=== PATIENT | male | born 1990 | race African-American/Black ===

== ENCOUNTER 2020-07-31 04:19 | Emergency (ER) | payer OTHER, SELFPAY ==
[2020-07-31 04:28] VITALS: BP 136/85; PULSE 115; RESP 16; TEMP 36.4; O2SAT 97; BMI 29.9
--- NOTE | 2020-07-31 04:37 | ECG_ITS ---
Test Reason : PALPATATIONS Blood Pressure : / mmHG Vent. Rate : 126 BPM Atrial Rate : 126 BPM P-R Int : 160 ms QRS Dur : 090 ms QT Int : 306 ms P-R-T Axes : 044 027 031 degrees QTc Int : 443 ms Sinus tachycardia Otherwise normal ECG No previous ECGs available Referred By: Tia Park Electronically Signed By:WON LOZANO
[2020-07-31 05:18] LABS: MANUAL DIFF FLAG NO
[2020-07-31 05:20] LABS: Basophils Absolute Auto 0.1 X10*3/uL (0.0-0.2); Basophils Percent Auto 0.3 % (0-2); Eosinophils Absolute Auto 0.2 X10*3/uL (0.0-0.4); Eosinophils Percent Auto 1.3 % (0-4); Hematocrit 42.1 % (42-52); Hemoglobin 13.7 g/dl (14.0-18.0); Imm Gran Pct Auto 0.6 % (0.0-0.4); Lymphocytes Absolute Auto 3.9 X10*3/uL (1.2-4.9); Lymphocytes Percent Auto 21.9 % (20-40); Mean Corpuscular HGB Conc 32.5 g/dl (31.0-36.0); Mean Corpuscular Hemoglobin 30.2 pg (27.0-33.0); Mean Corpuscular Volume 92.7 fL (80-98); Mean Platelet Volume 9.7 fL (9.4-12.4); Monocytes Absolute Auto 1.2 X10*3/uL (0.1-1.2); Monocytes Percent Auto 6.9 % (2-11); Neutrophils Absolute Auto 12.4 X10*3/uL (2.0-8.3); Platelet Count 457 X10*3/uL (160-400); Red Blood Count 4.54 X10*6/uL (4.60-5.80); Red Cell Distribution Width 11.9 % (11.0-16.0); White Blood Count 17.9 X10*3/uL (4.8-10.8)
[2020-07-31] MEDS: 0.9 % Sodium Chloride 1,000 ML 999 ML IV ×2 (05:21→06:54)
[2020-07-31] MEDS: LORazepam 2 MG/ML VIAL 1 MG IVPUSH (05:22)
[2020-07-31 05:28] LABS: D Dimer < 200 NG/ML
--- NOTE | 2020-07-31 05:36 | ED.MEDCLEAR ---
HPI - Medical Clearance General Chief complaint: Medical Clearance Stated complaint: FAST HEART RATE S/P MARIJUANA USE Time Seen by Provider: 07/31/20 04:37 History of Present Illness HPI Narrative: Patient is 30 years old history of marijuana use. Patient used marijuana 01:00 o'clock. Noted have palpitation at approximately 03:00. The heartbeat was fast. Patient denies any diaphoresis. Was fairly sudden in onset. Patient denies any chest pain. No history of blood clots in the past. Positive weakness. Patient is from home. No leg swelling. No history of travel. No history of clotting disorder. Patient has palpitation seems to be fast and regular. Related Information Allergies Allergy/AdvReac Type Severity Reaction Status Date / Time No Known Allergies Allergy Verified 07/31/20 04:34 Review of Systems Review of Systems: Constitutional: No Weight loss, No Fever, No Chills, No Night Sweats, No Fatigue, No Malaise ENT/Mouth: No Hearing loss, No Ear Pain, No Nasal Congestion, No Sinus Pain, No Hoarseness, No sore throat, No Rhinorrhea, No Swallowing Difficulty Eyes: No Eye Pain, No Swelling, No Redness, No Foreign Body, No Discharge, No Vision Changes Cardiovascular: No Chest Pain, No SOB, No Dyspnea on Exertion, No Orthopnea, No Edema, positive Palpitations Respiratory: No Cough, No Sputum, No Wheezing, No Smoke Exposure, No Dyspnea Gastrointestinal: No Nausea, No Vomiting, No Diarrhea, No Constipation, No abdominal Pain, No Hematochezia, No Melena Genitourinary: no irregular bleeding, No Dysuria, No Urinary Frequency, No Hematuria, No Urinary Incontinence, No Urgency, No Flank Pain, No Urinary Flow Changes, No Hesitancy Musculoskeletal: No joint pain, No Myalgias, No Joint Swelling Skin: No Skin Lesions, No rash Neuro: No Weakness, No Numbness, No Paresthesias, No Loss of Consciousness, No Dizziness, No Headache Psych: No Anxiety/Panic, No Depression, No SI/HI/AH/VH, No Social Issues, Heme/Lymph: No Bruising, No Bleeding,No Lymphadenopathy Endocrine: No Polyuria, No Polydipsia, No Temperature Intolerance PMFSH Past Medical History Attestation statement: The following information was validated with the patient. Social History Social History Alcohol intake: never Patient Tobacco Use Status: Current everyday Tobacco user Smoked in Last 30 Days: Yes Use of substances other than those prescribed or required for medical reasons: No Substance Use Type: Marijuana Advance Directives: No Advance Directives Information Provided: No Physical Exam Vital Signs: Vital Signs: Last Vital Signs Temp 97.5 F 07/31/20 04:28 Pulse 98 07/31/20 06:00 Resp 16 07/31/20 06:00 BP 119/64 07/31/20 06:00 Pulse Ox 97 07/31/20 06:00 Body Mass Index 29.9 Patient has fair appearing no acute distress Appearance: Alert. Oriented X3. No acute distress. Eyes: Pupils equal, round and reactive to light. ENT: Pharynx normal. Neck: Normal inspection. Neck supple. No lymph nodes noted. No crepitus CVS: Tachycardic but regular Respiratory: No respiratory distress. Breath sounds normal. No Wheezing. No rales Abdomen: Soft and nontender. No rigidity. No distention. good BS x4 Skin: Skin warm and dry. Normal skin color. Normal skin turgor. Extremities: No lower extremity edema. Neurovascular intact to all extremities. No Lacerations. No Rash Neuro: Oriented X 3. No motor deficit. No sensory deficit. Moving all extermities. No slurred speech MDM - Medical Clearance MDM Narrative Medical decision making narrative: Patient's presented today with having tachycardia EKG appear to be a sinus tachycardia heart rate was approximately 130. Patient's TSH is normal. No evidence for hyperthyroid. Patient's D-dimer is less than 200. No evidence for pulmonary emboli. Given IV fluid given time here in the emergency department. Heart rate is down to 96. Patient's electrolytes are unremarkable no evidence for renal insufficiency. Patient's white count is elevated. Patient has no source of infection. Lactate is 2.0. Likely secondary from dehydration. Given 2 L of IV fluids. Patient is to be discharged home. Currently sleeping heart rate is down to 96. In no distress. Medical Records Attestation: I reviewed the patient's medical records. Lab Data Attestation: I reviewed the patient's lab results. Result diagrams: 07/31/20 05:13 07/31/20 05:13 Labs: Lab Results 07/31/20 07/31/20 07/31/20 Range/Units 05:13 05:13 05:13 WBC 17.9 H (4.8-10.8) X10*3/uL RBC 4.54 L (4.60-5.80) X10*6/uL Hgb 13.7 L (14.0-18.0) g/dl Hct 42.1 (42-52) % MCV 92.7 (80-98) fL MCH 30.2 (27.0-33.0) pg MCHC 32.5 (31.0-36.0) g/dl RDW 11.9 (11.0-16.0) % Plt Count 457 H (160-400) X10*3/uL MPV 9.7 (9.4-12.4) fL Immature Gran % (Auto) 0.6 H (0.0-0.4) % Neut % (Auto) 69.0 (45-73) % Lymph % (Auto) 21.9 (20-40) % Assumption % (Auto) 6.9 (2-11) % Eos % (Auto) 1.3 (0-4) % Baso % (Auto) 0.3 (0-2) % Lymph # (Auto) 3.9 (1.2-4.9) X10*3/uL Assumption # (Auto) 1.2 (0.1-1.2) X10*3/uL Eos # (Auto) 0.2 (0.0-0.4) X10*3/uL Baso # (Auto) 0.1 (0.0-0.2) X10*3/uL Abs Immat Gran (auto) 0.10 H (0.00-0.03) X10*3/uL Absolute Neuts (auto) 12.4 H (2.0-8.3) X10*3/uL Absolute Nucleated RBC 0.000 (0.0-0.012) X10*3/uL Nucleated RBC % (auto) 0.0 (0.0-0.2) /100WBC D-Dimer < 200 NG/ML Sodium 140 (135-145) mmol/L Potassium 3.6 (3.3-5.1) mmol/L Chloride 104 (96-108) mmol/L Carbon Dioxide 26 (22-29) mmol/L Anion Gap 14 (12-20) BUN 13 (9-16) mg/dL Creatinine 1.07 (0.5-1.4) mg/dL Estim Creat Clear Calc 109.7 Estimated GFR > 60 Random Glucose 116 H (60-115) mg/dL Calcium 9.6 (8.4-10.2) mg/dL Total Bilirubin 0.3 (0.0-1.0) mg/dL Direct Bilirubin < 0.2 (0.0-0.5) mg/dL AST 24 (5-37) U/L ALT 29 (0-40) U/L Alkaline Phosphatase 119 H (39-117) U/L Total Protein 8.7 H (6.5-8.0) g/dL Albumin 4.8 (3.5-5.0) g/dL Lipase 24 (8-78) U/L TSH 1.03 (0.32-4.0) uIU/mL ECG Data Interpretation: Sinus heart rate is 130. AL QRS QT within normal limits as nonspecific T-wave flattening Critical Care Time Critical Care Time Total Critical Care Time: 40 Attestation: I have personally provided 40 minutes of critical care time exclusive of time spent on separately billable procedures. Time includes review of lab data, radiology results, discussion with consultants, and monitoring for potential decompensation. Interventions were performed as documented above Discharge Plan Discharge Clinical Impression: Dehydration, Sinus tachycardia Patient Disposition: Home, Self-Care Instructions: Heart Palpitations (ED), Dehydration (ED) Referrals: Physician,Unknown [Primary Care Provider] - 2 days
[2020-07-31 05:50] LABS: Alanine Aminotransferase 29 U/L (0-40); Albumin Level 4.8 g/dL (3.5-5.0); Alkaline Phosphatase 119 U/L (39-117); Anion Gap 14 (12-20); Aspartate Amino Transferase 24 U/L (5-37); Bilirubin Direct < 0.2 mg/dL (0.0-0.5); Bilirubin Total 0.3 mg/dL (0.0-1.0); Blood Urea Nitrogen 13 mg/dL (9-16); Calcium 9.6 mg/dL (8.4-10.2); Carbon Dioxide 26 mmol/L (22-29); Chloride 104 mmol/L (96-108); Creatinine Clr Calc Pharmacy 109.7; Estimated Glomerular Filt Rate > 60; Glucose Random 116 mg/dL (60-115); Lipase 24 U/L (8-78); Potassium 3.6 mmol/L (3.3-5.1); Sodium 140 mmol/L (135-145); Total Protein 8.7 g/dL (6.5-8.0)
[2020-07-31 06:00] VITALS: BP 119/64; PULSE 98; RESP 16; O2SAT 97
[2020-07-31 06:09] LABS: TSH reflex Free T4 1.03 uIU/mL (0.32-4.0)
== END 2020-07-31 07:46 | disposition home or self-care (01) ==
PROVIDERS: Emergency Provider Emergency Medicine Emergency Medical Services
DX: E86.0 Dehydration (principal); R00.0 Tachycardia, unspecified; F12.90 Cannabis use, unspecified, uncomplicated
CPT/HCPCS: 36415; 80048; 80076; 83690; 84443; 85025; 85379; 93005; 96361; 96374; 99284; J2060

== ENCOUNTER 2020-08-07 13:51 | Outpatient (REF) | payer SELFPAY ==
[2020-08-07 16:25] LABS: MANUAL DIFF FLAG NO
[2020-08-07 16:29] LABS: Basophils Percent Auto 0.4 % (0-2); Eosinophils Absolute Auto 0.2 X10*3/uL (0.0-0.4); Eosinophils Percent Auto 1.6 % (0-4); Hematocrit 42.6 % (42-52); Hemoglobin 13.4 g/dl (14.0-18.0); Imm Gran Abs Auto 0.04 X10*3/uL (0.00-0.03); Imm Gran Pct Auto 0.4 % (0.0-0.4); Lymphocytes Absolute Auto 2.8 X10*3/uL (1.2-4.9); Lymphocytes Percent Auto 25.8 % (20-40); Mean Corpuscular HGB Conc 31.5 g/dl (31.0-36.0); Mean Corpuscular Hemoglobin 29.6 pg (27.0-33.0); Mean Platelet Volume 10.7 fL (9.4-12.4); Monocytes Absolute Auto 0.7 X10*3/uL (0.1-1.2); Monocytes Percent Auto 6.5 % (2-11); Neutrophils Percent Auto 65.3 % (45-73); Platelet Count 418 X10*3/uL (160-400); Red Blood Count 4.53 X10*6/uL (4.60-5.80); Red Cell Distribution Width 11.9 % (11.0-16.0); White Blood Count 10.7 X10*3/uL (4.8-10.8)
[2020-08-07 16:54] LABS: Alanine Aminotransferase 29 U/L (0-40); Albumin Level 4.8 g/dL (3.5-5.0); Alkaline Phosphatase 101 U/L (39-117); Anion Gap 11 (12-20); Aspartate Amino Transferase 23 U/L (5-37); Bilirubin Total 0.4 mg/dL (0.0-1.0); Blood Urea Nitrogen 11 mg/dL (9-16); Calcium 9.3 mg/dL (8.4-10.2); Carbon Dioxide 29 mmol/L (22-29); Chloride 104 mmol/L (96-108); Estimated Glomerular Filt Rate > 60; Glucose Random 113 mg/dL (60-115); Potassium 4.1 mmol/L (3.3-5.1); Sodium 140 mmol/L (135-145); Total Protein 8.2 g/dL (6.5-8.0)
[2020-08-07 17:15] LABS: TSH reflex Free T4 0.76 uIU/mL (0.32-4.0)
== END 2020-08-07 13:52 | disposition home or self-care (01) ==
LOC: HO.HMGCLDS 13:51
PROVIDERS: PCP Nurse Practitioner Family; Visit Provider Nurse Practitioner Family
DX: D72.829 Elevated white blood cell count, unspecified (principal); D64.9 Anemia, unspecified; Z12.11 Encounter for screening for malignant neoplasm of colon; Z12.12 Encounter for screening for malignant neoplasm of rectum
CPT/HCPCS: 36415; 80053; 84443; 85025

== ENCOUNTER 2020-08-08 15:00 | Outpatient (REF) | payer SELFPAY ==
[2020-08-08 16:10] LABS: MANUAL DIFF FLAG NO
[2020-08-08 16:17] LABS: Basophils Percent Auto 0.3 % (0-2); Eosinophils Absolute Auto 0.2 X10*3/uL (0.0-0.4); Eosinophils Percent Auto 1.6 % (0-4); Hematocrit 40.8 % (42-52); Hemoglobin 13.2 g/dl (14.0-18.0); Imm Gran Abs Auto 0.05 X10*3/uL (0.00-0.03); Imm Gran Pct Auto 0.4 % (0.0-0.4); Lymphocytes Absolute Auto 2.9 X10*3/uL (1.2-4.9); Lymphocytes Percent Auto 25.1 % (20-40); Mean Corpuscular HGB Conc 32.4 g/dl (31.0-36.0); Mean Corpuscular Hemoglobin 30.1 pg (27.0-33.0); Mean Corpuscular Volume 92.9 fL (80-98); Mean Platelet Volume 10.5 fL (9.4-12.4); Monocytes Absolute Auto 0.9 X10*3/uL (0.1-1.2); Monocytes Percent Auto 7.5 % (2-11); Neutrophils Absolute Auto 7.4 X10*3/uL (2.0-8.3); Neutrophils Percent Auto 65.1 % (45-73); Platelet Count 419 X10*3/uL (160-400); Red Blood Count 4.39 X10*6/uL (4.60-5.80); Red Cell Distribution Width 11.9 % (11.0-16.0); White Blood Count 11.4 X10*3/uL (4.8-10.8)
[2020-08-08 16:38] LABS: Iron 86 mcg/dL (45-160); Percent Iron Saturation 30 % (15-50); Total Iron Binding Capacity 283 mcg/dL (228-428); Unsaturated Iron Binding 197 ug/dL
[2020-08-08 16:59] LABS: Ferritin 136 ng/mL (20-250)
[2020-08-08 17:05] LABS: Vitamin B12 346 pg/mL (200-900)
== END 2020-08-08 15:01 | disposition home or self-care (01) ==
LOC: HO.HMGCLDS 15:00
PROVIDERS: PCP Nurse Practitioner Family; Visit Provider Nurse Practitioner Family
DX: D64.9 Anemia, unspecified (principal)
CPT/HCPCS: 36415; 82607; 82728; 83540; 85025

== ENCOUNTER 2020-08-18 | Outpatient (REF) | payer SELFPAY ==
[2020-08-24 08:08] LABS: FIT1 POSITIVE (NEGATIVE); FIT2 POSITIVE (NEGATIVE)
[2020-08-24 08:09] LABS: FIT Int Ctl YES
== END 2020-08-18 00:01 | disposition home or self-care (01) ==
LOC: HO.LNP
PROVIDERS: Visit Provider Nurse Practitioner Family
DX: D64.9 Anemia, unspecified (principal)
CPT/HCPCS: 82274

== ENCOUNTER → 2020-10-25 12:02 | Outpatient (BNVA) | payer OTHER, SELFPAY | PROVIDERS: PCP Nurse Practitioner Family; Referring Provider Nurse Practitioner Family; Visit Provider Physician Assistant ==

== ENCOUNTER 2020-12-03 11:56 | Day surgery (SDC) | payer OTHER, SELFPAY ==
[2020-11-27 14:38] VITALS: BMI 30.4
--- NOTE | 2020-11-29 14:12 | P.CONAN_ITS ---
Documented by User: Madhavi Shipley NP 11/29/20 14:13 HPI - Anesthesia Eval Consult details Narrative: 30yo M for Colonoscopy PMFSH Active Problems Active Problems: All Active Problems (Updated 11/27/20 @ 14:41 by Margoth Goncalves RN) Low hemoglobin (Acute) GI bleed (Acute) Heme positive stool (Acute) Physical exam (Acute) Past Medical History Medical History Medical history unknown Family History Family History Father No problems noted. Mother No problems noted. Surgical History Surgical History Surgical history unknown Social History Social History Housing: Apartment Patient Tobacco Use Status: Never used Tobacco e-Cigarette/Vaping Use: Never Used Second Hand Smoke Exposure: No Substance Use Type: Marijuana Advance Directives Information Provided: Yes (informational brochure mailed) Advance Directives on File: No service: No Current occupational status: employed Current occupation: [employer] Allergies Allergy/AdvReac Type Severity Reaction Status Date / Time No Known Allergies Allergy Verified 12/03/20 12:56 Home Medications Medication Instructions Recorded Confirmed Last Taken Type buspirone 5 mg tablet 1 tab PO BID 11/27/20 11/27/20 Unknown History Exam Exam Date and Time: November 29, 2020 1412 Height,Weight and Vital Signs: Height 5 ft 8 in Weight 90.718 kg Pertinent Lab Results Pertinent Lab Results: Laboratory Tests 08/07/20 08/08/20 13:58 15:07 WBC 11.4 H Hgb 13.2 L Hct 40.8 L Plt Count 419 H Sodium 140 Potassium 4.1 Chloride 104 Carbon Dioxide 29 BUN 11 Creatinine 1.00 Narrative Narrative: EKG 07/2020 Vent. Rate : 126 BPM ? ? Atrial Rate : 126 BPM ?? P-R Int : 160 ms? QRS Dur : 090 ms ? ? QT Int : 306 ms ? ? ? P-R-T Axes : 044 027 031 degrees ?? QTc Int : 443 ms ? Sinus tachycardia Otherwise normal ECG No previous ECGs available Assessment and Plan Assessment Anesthesia Assessment: Chart Reviewed Documented by User: Savita Andrews MD 12/03/20 13:40 PMFSH Past Medical History Medical History Medical history unknown Functional capacity: independent ambulation Family History Family History Father No problems noted. Mother No problems noted. Family history of problems with anesthesia: No Surgical History Surgical History Surgical history unknown History of Problems with Anesthesia: No Social History Social History Housing: Apartment Patient Tobacco Use Status: Never used Tobacco e-Cigarette/Vaping Use: Never Used Second Hand Smoke Exposure: No Substance Use Type: Marijuana Advance Directives Information Provided: Yes (informational brochure mailed) Advance Directives on File: No service: No Current occupational status: employed Current occupation: [employer] Med[employer] Allergies Allergy/AdvReac Type Severity Reaction Status Date / Time No Known Allergies Allergy Verified 12/03/20 12:56 Home Medications Medication Instructions Recorded Confirmed Last Taken Type buspirone 5 mg tablet 1 tab PO BID 11/27/20 11/27/20 Unknown History Exam Airway Mallampati Class: III TM Dist: >3cm Neck ROM: Full Heart: RRR Lungs: CTA Assessment and Plan Final Anesthetic Review Family History of Problems with Anesthesia: No History of Problems with Anesthesia: No
[2020-12-03 12:56] VITALS: BP 141/83; PULSE 103; RESP 20; TEMP 36.7; O2SAT 99
--- NOTE | 2020-12-03 13:03 | P.HPSUR_ITS ---
Pre-Procedural Eval Section A Date of Service: 12/03/20 Section B Chief Complaint: heme positive stool Relevant Family History (Specify if Yes): No Relevant Social History: Other (specify) (THC ) Present Medications: see Short Stay Collaborative assessment Medical History: No relevant PMH History of Previous Operations: No relevant previous surgery Allergies: Allergies Allergy/AdvReac Type Severity Reaction Status Date / Time No Known Allergies Allergy Verified 12/03/20 12:56 Review of Systems Sugical H&P ROS: Negative: Constitution, Cardiovascular, Respiratory, Neurological, Psychiatric, Hem-Onc, Allergic/Immunologic, Gastrointestinal, Genitourinary, Musculoskeletal, Integumentary, Endocrine and Eyes/Ears/Nose/Throat Exam Surgical H&P Exam: Normal: HEENT, Normal: Heart, Normal: Lungs, Normal: Extrem ities, Normal: Abdomen, Normal: Skin and Normal: Neurological Plan Diagnosis/Plan: Unchanged I have reviewed the history and physical and performed a pertinent physical examination on my patient. No changes have occurred unless specified.
[2020-12-03] MEDS: Lactated Ringers 1,000 ML 100 ML IVCONT (13:19)
--- NOTE | 2020-12-03 13:28 | P.BOP_ITS ---
Brief Operative Note Date of Service: 12/03/20 Pre-op diagnosis: anemia, pos heme Post-op diagnosis: same Procedure: see op note Surgeon: Alda Valadez MD Anesthesia: MAC Was an Critical Systems Technician used for this Procedure?: No Estimated blood loss (mL): 0 Condition: stable Disposition: PACU
--- NOTE | 2020-12-03 13:28 | W.PM.OPN ---
Operative Note Operative Note Date of Service: 12/03/20 Narrative: Operative Information Procedure Description: Colonoscopy COLONOSCOPY Instrument: Olympus variable stiffness pediatric scope 190L Colonoscopy Monitoring: Vital signs and clinical assessment, continuous EKG monitoring, Pulse oximetry, Carbon Dioxide monitoring and blood pressure monitoring were done throughout the procedure. Colon withdrawal time was 8 minutes. Procedure: The patient was placed in the left lateral decubitis position and pre-procedure medications were administered. After a digital rectal examination of the ano-rectum, the video colonoscope was inserted into the rectum and advanced through the colon to the cecum/TI. The colonoscope was slowly withdrawn in a retrograde panoramic fashion and the colon mucosa was carefully examined including a retroflexed view of the rectum. Findings and interventions are described below. Procedure Difficulty: easy Findings: Terminal Ileum-normal Cecum:normal Ascending Colon: normal Transverse Colon -normal Descending Colon:normal Sigmoid Colon: normal Rectum: Retroflexion with small slightly inflammed internal hemorrhoids, grade I Anorectum - normal Colon preparation: Garrison Bowel Preparation Scale Right colon; 2 Transverse colon: 2 Left colon; 2 (0 = Unprepared colon segment with mucosa not seen due to solid stool that cannot be cleared. 1 = Portion of mucosa of the colon segment seen, but other areas of the colon segment not well seen due to staining, residual stool and/or opaque liquid. 2 = Minor amount of residual staining, small fragments of stool and/or opaque liquid, but mucosa of colon segment seen well. 3 = Entire mucosa of colon segment seen well with no residual staining, small fragments of stool or opaque liquid) Impression and Post Procedure Diagnosis: internal hemorrhoids Plan: High fiber diet leaflet Avoid straining at stool, epsom salts and sitz bath, anusol supps or cream Repeat Colonoscopy aged 45 or earlier if clinically indicated iron indices were normal, if anemia persists or worsens then consider EGD for completion of w/u Above findings were reviewed with the patient and relevant handouts were provided if indicated.
[2020-12-03 13:55] VITALS: BP 115/61; PULSE 87; RESP 14; TEMP 36.2; O2SAT 99
--- NOTE | 2020-12-03 14:05 | HO.POSTANES ---
Post Anesthesia Evaluation Post Anesthesia Evaluation Vital Signs: Vital Signs Temp Pulse Resp BP Pulse Ox 12/03/20 13:55 97.2 F 87 14 115/61 99 12/03/20 12:56 98.0 F 103 H 20 141/83 H 99 Anesthesia: Monitored Mental Status: Awake Pain Control: Satisfactory Nausea/Vomiting: None Hydration: Adequate Anesthesia-Related Issues: No Anes. Related Issues
[2020-12-03 14:10] VITALS: BP 122/70; PULSE 84; RESP 16; TEMP 36.2; O2SAT 99
== END 2020-12-03 14:31 | disposition home or self-care (01) ==
PROVIDERS: PCP Nurse Practitioner Family; Visit Provider Internal Medicine Gastroenterology
PROC: 0DJD8ZZ Inspection of Lower Intestinal Tract, Via Natural or Artificial Opening Endoscopic (ICD-10-PCS; CPT 45378; principal; 2020-12-03 13:20)
DX: R19.5 Other fecal abnormalities (principal); K64.0 First degree hemorrhoids; D64.9 Anemia, unspecified; F12.90 Cannabis use, unspecified, uncomplicated
CPT/HCPCS: 45378

== ENCOUNTER 2022-12-17 11:30 | Outpatient (AMB) | payer OTHER, SELFPAY ==
--- NOTE | 2022-12-17 11:42 | MHC.OFFWIV ---
Intake Vital Signs 12/17/22 11:47 Weight 198 lb BP 120/70 Blood Pressure Location Rt brachial Position Sitting Pulse 89 Pulse Source Pulse Oximeter Temp 97.9 F Temp Source Temporal Artery Scan Pulse Oximetry (%) 96 Oxygen Delivery Method Room Air Intake Visit Reasons: EP, cough, congestion [phone] Intake Note: Pt is here c/o bad cough, chest congestion and sore throat for the past four days. Patient Tobacco Use Status: Never used Tobacco Allergies No Known Allergies Allergy (Verified 12/17/22 11:42) Do you need a note to return to daycare/school/sports/work: Yes HPI HPI Comments History of Present Illness Details 32-year-old the presents for cough congestion mild shortness of breath. Symptoms been present about 3 days denies fever chills cough is mildly productive PFSH Medical History Medical history unknown Surgical History Surgical history unknown Family History Father No problems noted. Mother No problems noted. Social History Housing: Apartment Patient Tobacco Use Status: Never used Tobacco e-Cigarette/Vaping Use: Never Used Second Hand Smoke Exposure: No Substance Use Type: Marijuana service: No Current occupational status: employed Current occupation: [employer] Review of Systems Card Reports dyspnea Resp Reports chest congestion, Reports cough and Reports dyspnea Physical Exam Vital Signs: Last Vital Signs Temp 97.9 F 12/17/22 11:47 Pulse 89 12/17/22 11:47 BP 120/70 12/17/22 11:47 Pulse Ox 96 12/17/22 11:47 Oxygen Delivery Method Room Air 12/17/22 11:47 Const General: cooperative, no acute distress and alert Orientation/consciousness: patient oriented x3 Limitations: no limitations HEENT Head: Yes normal to inspection Ears: hearing grossly normal bilaterally and external ears normal General nose exam: Normal external nose present Eyes General: appearance normal, both eyes and all related structures Neck Neck: Yes normal visual inspection Chest Chest palpation & inspection: normal inspection of the chest Resp Effort & Inspection: normal respiratory effort, able to speak in complete sentences and no audible wheezes Auscultation: clear to auscultation bilaterally Cardio Rate: regular rate Rhythm: regular rhythm GI Inspection: Yes normal to inspection Palpation (GI): Soft to palpation and nontender Skin General skin exam: no rashes or lesions noted Neuro General: patient oriented x3 Psych Appearance: grossly normal Mental Status: mental status grossly normal Speech and movement: Normal speech and movement present Affect: normal affect Attitude: cooperative Thought process: Normal thought process present Thought content: Normal thought content present Results AMB Rapid Strep AMB Rapid Strep Negative Last Edit by Angelica Nolasco CMA on 12/17/22 11:51 Results Reviewed Results Reviewed: Laboratory Last Values Strep Scn [facility] Negative 12/17/22 11:50 Assessment & Plan Assessment & Plan (1) URI (upper respiratory infection): Code(s): J06.9 - Acute upper respiratory infection, unspecified Qualifiers: URI type: unspecified URI Qualified Code(s): J06.9 - Acute upper respiratory infection, unspecified Plan: signs symptoms consistent with viral URI. Recommend continued symptomatic treatment at home. Discharge instructions, follow up and treatment are discussed with patient in my usual fashion. Alternatives in treatment are also discussed. The patient will return for worsening symptoms or as needed. Advised that any labs/imaging ordered will be followed up on and contact made if further treatment needed. Counseled that patient's condition may require further evaluation and/or treatment. Symptoms of concern for worsening disorder discussed in detail in my customary manner. Patient does verbalize understanding of the plan, there are no apparent barriers to communication. The patient is given the opportunity to ask questions and have them answered to his/her satisfaction Orders: Orders AMB Rapid Strep Screen Today Z13.9 - Encounter for screening, unspecified German Simon MD Medications: New benzonatate 100 mg PO BID-TID PRN 10 caps 0RF cough FRANKIE Lyn azithromycin For 250 mg dose pack: take 500 mg today (day 1), then 250 mg for 4 days (days 2-5) PO 6 tabs 0RF FRANKIE Lyn Coding Level of Care Code Est Pt Level 3 (43740) Diagnoses Upper respiratory tract infection, unspecified type J06.9 URI type: unspecified URI
[2022-12-17 11:47] VITALS: BP 120/70; PULSE 89; TEMP 36.6; O2SAT 96
== END 2022-12-17 12:31 | disposition home or self-care (01) ==
PROVIDERS: PCP Nurse Practitioner Family; Visit Provider Physician Assistant
DX: J06.9 Acute upper respiratory infection, unspecified (principal); Z13.9 Encounter for screening, unspecified
CPT/HCPCS: 87880; 99213